=== PATIENT | female | born 1940 | race Caucasian/White ===

== ENCOUNTER → 2023-08-05 08:15 | Outpatient (REF) | payer MEDICARE, BC, SELFPAY | LOC: EMG 08:15 | PROVIDERS: ATTENDING PHYSICIAN Orthopaedic Surgery Hand Surgery; FAMILY PHYSICIAN Family Medicine | DX: R20.0 Anesthesia of skin (principal); R20.9 Unspecified disturbances of skin sensation; R20.2 Paresthesia of skin | CPT/HCPCS: 95886; 95910 ==

== ENCOUNTER 2024-02-25 15:53 | Emergency (ER) | payer MEDICARE, BC, SELFPAY ==
[2024-02-25 15:56] VITALS: BP 136/61
[2024-02-25 15:58] VITALS: BMI 25.9
[2024-02-25 16:03] VITALS: BP 136/61
--- NOTE | 2024-02-25 16:18 | ED.GENMED ---
History of Present Illness
General
Chief Complaint: Back Pain
Source: patient and spouse
Exam Limitations: none
Time Seen by Provider: 02/25/24 16:05
Nursing documentation reviewed up to this point in time: agreed with
History of Present Illness
History of Present Illness:
Patient states she had a trip and fall on Friday. Hit back of head on carpeted floor. No LOC. Helped up by EMS but she declined ED transfert. States she then developed low back pain. Evaluated by PCP on Friday and placed on Meloxicam which
she feels is not helpful. Had outpatient xrays yesterda but unsure of results. Given Rx for MRI of thoracic spine and is scheduled for 03/02. Brought to ED today due to unmanageable low back pain. Also states she had UTI symptoms last week.
Evaluated by her urologist. Called on Friday and told she had UTI. Rx for cefdinir 300mg bid ordered. SHe has had 4 doses to date. No fever/chills.
Past History
Past History
ED Past Medical History: Hypothyroidism, Psychiatric (anxiety depression) and Other (SVT, rheumatoid arthritis, macular degeneration)
ED Past Surgical History: Cholecystectomy, Tonsilectomy and Urological
Social History
Tobacco: Former smoker
Alcohol: Occasional
Family History
Family History: CAD
Review of Systems
Review of Systems
Allergies reviewed?: Yes
All Other Systems: ROS reviewed and negative except as documented in HPI and ROS
Constitutional: Reports no symptoms
EENT: Reports no symptoms
Respiratory: Reports no symptoms
Cardiac: Reports no symptoms
ABD/GI: Reports no symptoms
Musculoskeletal: Reports back pain (low back pain)
Skin: Reports no symptoms
Neurological: Reports no symptoms
Psychiatric: Reports no symptoms
Phy Exam
General Physical Exam
General Presentation: well appearing and mild distress
General age: appears stated age
General Skin: warm and dry
General Habitus: normal
General Mental: alert
General Hydration: appears well hydrated
Cardiovascular Exam
Cardiovascular Exam: regular rate/rhythm
Gastrointestinal Exam
Gastrointestinal Exam: non tender, soft and no organomegaly
Musculoskeletal Exam
Musculoskeletal Exam: back pain (low back pain) and neuro vasc intact
Skin Exam
Skin Exam: normal color, warm/dry and no rash
Psychiatric Exam
Psychiatric Exam: normal mood/affect
Course
Orders/Labs/Results
Orders:
Orders
02/25/24 16:17
Ketorolac [Toradol] 15 mg IV NOW STA
02/25/24 16:30
Complete Blood Count/With Diff Urgent
Comprehensive Metabolic Panel Urgent
Urinalysis Reflex To Culture Urgent
Date Specimen was Collected: 02/25/24
Time Specimen was Collected: 16:17
Urine Microscopic Reflex Cult Urgent
Urine Culture Urgent
GLADIS Source: U
Specimen Description:
Date Specimen was Collected: 02/25/24
Time Specimen was Collected: 16:17
02/25/24 18:13
Hydrocodone 5/APAP 325 [[place] 5/325] 1 tablet PO NOW STA
Abnormal Lab Results
02/25/24
16:30
WBC 11.2 H 10^3/uL
(4.8-10.8)
RBC 5.55 H 10^6/uL
(4.20-5.40)
Hgb 11.9 L g/dL
(12.0-16.0)
MCV 68.5 L fL
(81.0-99.0)
MCH 21.4 L pg
(27.0-31.0)
MCHC 31.3 L g/dL
(33.0-37.0)
RDW 17.5 H %
(11.5-14.5)
Abs Immat Gran (auto) 0.3 H 10^3/uL
(0-0.05)
Absolute Neuts (auto) 8.9 H 10^3/uL
(1.4-6.5)
Absolute Lymphs (auto) 0.9 L 10^3/uL
(1.2-3.4)
Absolute Monos (auto) 0.9 H 10^3/uL
(0.1-0.6)
Immature Gran % 2.5 H %
(0-0.5)
Neutrophils % 79.2 H %
(42.2-75.2)
Lymphocytes % 7.6 L %
(20.5-51.1)
Total Protein 5.9 L g/dl
(6.3-8.2)
Ur Occult Blood Reflex Trace A
(Negative)
Leukocyte Esterase Rfl 1+ A
(Negative)
Urine Bacteria (Reflex) Moderate A
(Negative)
02/25/24 16:30
02/25/24 16:30
Vital Signs
Initial and Last Documented VS:
Initial Vital Signs
Temp Pulse Resp BP Pulse Ox
99 F 101 18 136/61 95
02/25/24 15:56 02/25/24 15:56 02/25/24 15:56 02/25/24 15:56 02/25/24 15:56
Last Documented Vital Signs
Temp Pulse Resp BP Pulse Ox
98.7 F 101 18 146/53 95
02/25/24 18:00 02/25/24 16:03 02/25/24 15:56 02/25/24 18:00 02/25/24 17:51
*Critical Care Note
Total Time (30-74mins, 75-104mins- exclusive of procedures): Not Applicable
Update Note
Update Note:
Improved with IV toradol. Able to ambulate in room with minimal assistance. WIll discharge home. Given rx for short course norco. WIll followupw ith PCP. Given instructions on s/s to return to ED and she is agreeable to plan. MRI 03/05
ED Attending Note
-
Portions of this chart may have been created with voice recognition software.� Occasional wrong word or��sound alike� substitutions may have occurred due to the inherent limitations of voice recognition software.
Discharge Plan
Departure
Patient Disposition: Home (Routine Discharge)
Date of Disposition: 02/25/24
Time of Disposition: 18:14
Patient with high blood pressure during this ER visit?: No
Condition: Good
Covid-19: Not Applicable
Discharge Problem:
Back pain
Instructions: Low Back Pain (DC), Using Cold for Pain
Prescriptions:
New
hydrocodone-acetaminophen 5-325 mg tablet
1 tab PO TID PRN (Reason: Pain) Qty: 10 0RF
No Action
sertraline 100 MG tablet
150 mg PO DAILY
calcium carbonate 600 MG tablet
400 mg PO DAILY
Acid Control (ranitidine) 150 MG tablet
150 mg PO BID
diazepam 5 MG tablet
5 mg PO HS
coenzyme Q10 [Co Q-10] 200 MG capsule
200 mg PO DAILY
Cyanocobalamin (Vitamin B-12)
5,000 mcg PO DAILY
levothyroxine 125 MCG tablet
125 mcg PO DAILY AT 0700 Qty: 30 1RF
Rx Instructions:
refills must come from PCP. You must take this medication alone and on an empty stomach.
aspirin 81 MG tablet,chewable
81 mg PO DAILY
cholecalciferol (vitamin D3) [Vitamin D3] 1,000 UNIT capsule
1,000 unit PO DAILY
Referrals:
UNKNOWN - PT DOES,NOT KNOW [Family Provider] -
Activity Restrictions/Additional Instructions:
Follow up with your family doctor.
Interventions
Interventions:
*Risk Screen - Suicide Last Done: 02/25/24 15:59
*General Assessment Last Done: 02/25/24 15:59
*Neglect/Abuse Screening Last Done: 02/25/24 15:59
ED- Fall Risk Assessment Last Done: 02/25/24 15:59
*ED COVID-19 Vaccine History Last Done: 02/25/24 15:59
*Nursing Disposition Last Done: 02/25/24 21:39
ED-Musculoskeletal Assessment Last Done: 02/25/24 16:01
Discharge Date and Time
Discharge Date/Time: 02/25/24 21:39
Print Language: MONGOLIAN
[2024-02-25] MEDS: TORADOL 15 MG IV (16:35)
[2024-02-25 16:45] LABS: % Basophils 0.3 % (0-2); % Eosinophils 2.3 % (0-6); % Immature Granulocytes 2.5 % (0-0.5); % Lymphocytes 7.6 % (20.5-51.1); % Monocytes 8.1 % (1.7-9.3); % Neutrophils 79.2 % (42.2-75.2); Absolute Eosinophils 0.3 10^3/uL (0-0.7); Absolute Immature Granulocytes 0.3 10^3/uL (0-0.05); Absolute Lymphocytes 0.9 10^3/uL (1.2-3.4); Absolute Monocytes 0.9 10^3/uL (0.1-0.6); Absolute Neutrophils 8.9 10^3/uL (1.4-6.5); Hemoglobin 11.9 g/dL (12.0-16.0); Mean Corp Hgb Conc. 31.3 g/dL (33.0-37.0); Mean Corpuscular Hgb 21.4 pg (27.0-31.0); Mean Corpuscular Volume 68.5 fL (81.0-99.0); Mean Platelet Volume 9.4 fL (7.4-10.4); Nucleated Red Blood Cells % 0 %; Platelet Count 306 10^3/uL (130-400); Red Blood Cell Count 5.55 10^6/uL (4.20-5.40); Red Cell Dist. Width 17.5 % (11.5-14.5); White Blood Cell Count 11.2 10^3/uL (4.8-10.8)
[2024-02-25 17:06] LABS: ALT (SGPT) 14 U/L (0-35); AST (SGOT) 16 U/L (14-36); Albumin 3.8 g/dl (3.5-5.0); Alkaline Phosphatase 106 U/L (38-126); Blood Urea Nitrogen 16 mg/dl (7-17); Calcium 9.2 mg/dl (8.4-10.2); Carbon Dioxide 25 mmol/L (22-30); Chloride 103 mmol/L (98-107); Estimated Creatinine Clearance 57 ml/min; Glucose 99 mg/dl (70-99); Potassium 4.4 mmol/L (3.5-5.1); Sodium 138 mmol/L (135-145); Total Bilirubin 0.6 mg/dl (0.2-1.3); Total Protein 5.9 g/dl (6.3-8.2); eGFR > 60.00
[2024-02-25 17:14] LABS: Urine Albumin Trace (Neg - Trace); Urine Bilirubin Negative (Negative); Urine Character Clear (Clear); Urine Color Yellow; Urine Glucose Negative (Negative); Urine Ketone Negative (Negative); Urine Leukocyte 1+ (Negative); Urine Nitrite Negative (Negative); Urine Occult Blood Trace (Negative); Urine Urobilinogen Negative (Neg - 1+)
[2024-02-25 17:39] LABS: Urine Bacteria Moderate (Negative); Urine Red Blood Cell 0-2 /HPF (0-2)
[2024-02-25 18:00] VITALS: BP 146/53
[2024-02-25] MEDS: NORCO 5/325 1 TABLET PO (18:17)
== END 2024-02-25 21:39 | disposition home or self-care (01) ==
LOC: EMR 15:53
PROVIDERS: Nurse Practitioner; EMERGENCY PHYSICIAN Emergency Medicine
DX: M54.50 Low back pain, unspecified (principal); S09.90XA Unspecified injury of head, initial encounter; W01.0XXA Fall on same level from slipping, tripping and stumbling without subsequent striking against object, initial encounter; N39.0 Urinary tract infection, site not specified; E03.9 Hypothyroidism, unspecified; F32.A Depression, unspecified; I48.91 Unspecified atrial fibrillation; F41.9 Anxiety disorder, unspecified; I47.10 Supraventricular tachycardia, unspecified; H35.30 Unspecified macular degeneration; M06.9 Rheumatoid arthritis, unspecified; E07.9 Disorder of thyroid, unspecified; Z87.440 Personal history of urinary (tract) infections; Z87.891 Personal history of nicotine dependence; Z90.49 Acquired absence of other specified parts of digestive tract; Z88.1 Allergy status to other antibiotic agents; Z88.8 Allergy status to other drugs, medicaments and biological substances
CPT/HCPCS: 99284; 96374; 80053; 81003; 81015; 85025; 87086